=== PATIENT | female | born 1995 | race Caucasian/White ===

== ENCOUNTER 2017-10-10 19:16 | Emergency (ER) | payer OTHER ==
[2017-10-10 19:24] VITALS: BP 140/74
--- NOTE | 2017-10-10 19:32 | ED Physician Documentation ---
PD HPI OPHTHO - Stated complaint Stated Complaint: EYE ISSUES - Chief complaint Chief Complaint: Heent - History obtained from History obtained from: Patient - History of Present Illness Timing - onset: Today (Fairly acutely within the last few hours this noncontact lens wearing woman is developed a sensation of irritation and swelling the left lateral sclera without visual deficit.) Review of Systems Constitutional: denies: Fever, Chills Ears: denies: Loss of hearing, Ear pain, Drainage/discharge Nose: denies: Rhinorrhea / runny nose, Congestion PD PAST MEDICAL HISTORY - Past Medical History : Chronic bladder infection - Past Surgical History Past Surgical History: No - Present Medications Home Medications: Ambulatory Orders Medication Instructions Recorded Confirmed Ciprofloxacin [Cipro] 500 mg PO Q12H #20 tablet 05/09/14 Ibuprofen 1 tab TID PRN 05/09/14 05/09/14 Oxycodone HCl/Acetaminophen 1 each PO Q6H PRN #10 tablet 05/09/14 [Percocet 5-325 mg Tablet] predniSONE [Prednisone] 40 mg PO DAILY 5 Days tablet 05/09/14 Meloxicam [Mobic] 7.5 mg PO DAILY #20 tablet 03/25/16 raNITIdine [Zantac] 150 mg PO DAILY #30 tablet 03/25/16 Tobramycin/Dexamethasone [Tobradex 1 drops OP TID 5 Days #1 drops.susp 10/10/17 Eye Drops] - Allergies Allergies/Adverse Reactions: Allergies Allergy/AdvReac Type Severity Reaction Status Date / Time amoxicillin Allergy Rash Verified 05/09/14 17:27 Sulfa (Sulfonamide Allergy Rash Verified 05/09/14 17:27 Antibiotics) - Social History Does the pt smoke?: No Smoking Status: Never smoker Does the pt drink ETOH?: No Does the pt have substance abuse?: No PD ED PE NORMAL - Vitals Vital signs reviewed: Yes - General General: Alert and oriented X 3, No acute distress - HEENT HEENT: PERRL, EOMI, Other (She has conjunctivitis on the left with lateral chemosis and no fluorescein uptake.) - Neck Neck: Supple, no meningeal sign, No bony TTP Results - Vitals Vitals: Vital Signs - 24 hr 10/10/17 19:22 Temperature 36.8 C Heart Rate 76 Respiratory 18 Rate Blood Pressure 140/74 H O2 Saturation 99 Oxygen O2 Source Room air PD MEDICAL DECISION MAKING - Sepsis Event Vital Signs: Vital Signs - 24 hr 10/10/17 19:22 Temperature 36.8 C Heart Rate 76 Respiratory 18 Rate Blood Pressure 140/74 H O2 Saturation 99 Oxygen O2 Source Room air Departure - Departure Disposition: 01 Home, Self Care Clinical Impression: Conjunctivitis, left eye Qualifiers: Conjunctivitis type: acute Acute conjunctivitis type: unspecified Qualified Code(s): H10.32 - Unspecified acute conjunctivitis, left eye Condition: Good Record reviewed to determine appropriate education?: Yes Instructions: ED Conjunctivitis Nonspecific Prescriptions: Tobramycin/Dexamethasone [Tobradex Eye Drops] 1 drops OP TID 5 Days #1 drops.susp Comments: The eyedrops should rapidly resolve the symptoms, if not better at the end of the weekend see your eye doctor. Your blood pressure was elevated today on check into the emergency department. This does not mean that you have hypertension, it is a common phenomenon to come to the emergency department and have elevated blood pressure. I recommend that you see your primary care physician within the week to have it rechecked when you are feeling better.
== END 2017-10-10 19:44 | disposition home or self-care (01) ==
LOC: ED 19:16
DX: H10.32 Unspecified acute conjunctivitis, left eye (principal); R03.0 Elevated blood-pressure reading, without diagnosis of hypertension
CPT/HCPCS: 99282; 99283

== ENCOUNTER 2018-11-26 12:44 | Emergency (ER) | payer BC, OTHER ==
--- NOTE | 2018-11-26 13:39 | ED Physician Documentation ---
History of Present Illness - Stated complaint Stated Complaint: ABD PX/FEMALE - Chief complaint Chief Complaint: General - History obtained from History obtained from: Patient - History of Present Illness Timing: Prior to arrival - Additonal information Additional information: Patient is a G1, P1 23-year-old female who has concern for possible with multiple test positive at home but has not yet had confirmatory ultrasound or care. Patient was supposed to see women's health clinic this morning but yesterday developed a migraine and had nausea which is typical for her usual migraines, but then later developed abdominal cramping and this morning developed Vaginal bleeding. Patient denies any urinary changes, stool changes, fever, or other concerns. Patient does know that her blood type is O- and has received RhoGam in the past. No other improving or worsening factors noted. Review of Systems Constitutional: denies: Fever GI: reports: Abdominal Pain, Nausea. denies: Vomiting, Diarrhea : reports: Vaginal bleeding. denies: Dysuria Neurologic: reports: Headache PD PAST MEDICAL HISTORY - Past Medical History Past Medical History: Yes Neuro: Migraines : Chronic bladder infection - Past Surgical History Past Surgical History: No - Present Medications Home Medications: Ambulatory Orders Medication Instructions Recorded Confirmed Ciprofloxacin [Cipro] 500 mg PO Q12H #20 tablet 05/09/14 Ibuprofen 1 tab TID PRN 05/09/14 05/09/14 Oxycodone HCl/Acetaminophen 1 each PO Q6H PRN #10 tablet 05/09/14 [Percocet 5-325 mg Tablet] predniSONE [Prednisone] 40 mg PO DAILY 5 Days tablet 05/09/14 Meloxicam [Mobic] 7.5 mg PO DAILY #20 tablet 03/25/16 raNITIdine [Zantac] 150 mg PO DAILY #30 tablet 03/25/16 Tobramycin/Dexamethasone [Tobradex 1 drops OP TID 5 Days #1 drops.susp 10/10/17 Eye Drops] Cephalexin [Keflex] 500 mg PO BID #14 capsule 11/26/18 - Allergies Allergies/Adverse Reactions: Allergies Allergy/AdvReac Type Severity Reaction Status Date / Time amoxicillin Allergy Rash Verified 05/09/14 17:27 Sulfa (Sulfonamide Allergy Rash Verified 05/09/14 17:27 Antibiotics) - Social History Does the pt smoke?: No Smoking Status: Never smoker Does the pt drink ETOH?: No Does the pt have substance abuse?: No - Immunizations Immunizations are current?: Yes PD ED PE NORMAL - Vitals Vital signs reviewed: Yes - General General: Alert and oriented X 3, No acute distress, Well developed/nourished - HEENT HEENT: Atraumatic, Moist mucous membranes - Neck Neck: Supple, no meningeal sign - Cardiac Cardiac: RRR, No murmur - Respiratory Respiratory: No respiratory distress, Clear bilaterally - Abdomen Abdomen: Soft, Non tender, Non distended - Derm Derm: Normal color, Warm and dry, No rash - Extremities Extremities: No deformity, No tenderness to palpate - Neuro Neuro: Alert and oriented X 3, No motor deficit, No sensory deficit - Psych Psych: Normal mood, Normal affect Results - Vitals Vitals: Vital Signs - 24 hr 11/26/18 11/26/18 11/26/18 12:50 14:19 17:28 Temperature 37.1 C 37.4 C Heart Rate 84 61 62 Respiratory 16 16 12 Rate Blood Pressure 125/64 122/78 122/78 O2 Saturation 100 99 98 Oxygen O2 Source Room air - Labs Labs: Laboratory Tests 11/26/18 11/26/18 11/26/18 14:00 14:00 14:00 WBC 4.9 RBC 4.42 Hgb 12.1 Hct 37.1 MCV 83.9 MCH 27.4 MCHC 32.6 RDW 14.1 Plt Count 144 MPV 12.2 H Neut # (Auto) 2.9 Lymph # (Auto) 1.4 L [place] # (Auto) 0.4 Eos # (Auto) 0.2 Baso # (Auto) 0.0 Absolute Nucleated RBC 0.00 Nucleated RBC % 0.0 PT 14.5 H INR 1.3 H APTT 27.4 Sodium 140 Potassium 3.5 Chloride 105 Carbon Dioxide 23 Anion Gap 12.0 BUN 10 Creatinine 0.8 Estimated GFR (MDRD) 88 L Glucose 102 H Calcium 9.1 Total Bilirubin 1.0 AST 19 ALT 14 Alkaline Phosphatase 47 Total Protein 7.6 Albumin 4.1 Globulin 3.5 Albumin/Globulin Ratio 1.2 Lipase 24 HCG, Quant Urine Color Urine Clarity Urine pH Ur Specific [place] Urine Protein Urine Glucose (UA) Urine Ketones Urine Occult Blood Urine Nitrite Urine Bilirubin Urine Urobilinogen Ur Leukocyte Esterase Urine RBC Urine WBC Ur Squamous Epith Cells Urine Bacteria Ur Microscopic Review Urine Culture Comments Blood Type Antibody Screen 11/26/18 11/26/18 11/26/18 14:00 14:00 14:20 WBC RBC Hgb Hct MCV MCH MCHC RDW Plt Count MPV Neut # (Auto) Lymph # (Auto) [place] # (Auto) Eos # (Auto) Baso # (Auto) Absolute Nucleated RBC Nucleated RBC % PT INR APTT Sodium Potassium Chloride Carbon Dioxide Anion Gap BUN Creatinine Estimated GFR (MDRD) Glucose Calcium Total Bilirubin AST ALT Alkaline Phosphatase Total Protein Albumin Globulin Albumin/Globulin Ratio Lipase HCG, Quant 31.64 Urine Color YELLOW Urine Clarity CLEAR Urine pH 6.0 Ur Specific [place] 1.025 Urine Protein TRACE Urine Glucose (UA) NEGATIVE Urine Ketones 15 H Urine Occult Blood LARGE H Urine Nitrite POSITIVE H Urine Bilirubin NEGATIVE Urine Urobilinogen 1 (NORMAL) Ur Leukocyte Esterase TRACE H Urine RBC 11-25 H Urine WBC 6-10 H Ur Squamous Epith Cells FEW Squamous Urine Bacteria Many H Ur Microscopic Review INDICATED Urine Culture Comments INDICATED Blood Type O NEGATIVE Antibody Screen NEGATIVE PD MEDICAL DECISION MAKING - ED course Complexity details: reviewed results, re-evaluated patient, considered differential, d/w patient, d/w family ED course: Patient presenting with abdominal cramping and vaginal bleeding and early possible that has not yet been confirmed. Patient has had multiple home test returned positive, but has not yet been able to attend care. Physical exam is relatively unremarkable. Patient is hemodynamically stable and comfortable. Patient to receive IV fluids, but did not require other medications at this time except for RhoGam given her vaginal bleeding and O- status. Screening lab work returned relatively unremarkable with low level hCG. Urinalysis concerning for infection and given possibility of , felt appropriate to treat with oral antibiotics for home. Ultrasound obtained which not show evidence of IUP or other ectopic . Discussed results and recommendations with patient and family including use of antibiotics, supportive cares, return precautions, and follow-up including repeat hCG level in 48 hours. Patient voiced understanding and is comfortable with discharge plan. Departure - Departure Disposition: 01 Home, Self Care Clinical Impression: Threatened miscarriage in early Urinary tract infection Qualifiers: Urinary tract infection type: acute cystitis Hematuria presence: without hematuria Qualified Code(s): N30.00 - Acute cystitis without hematuria Condition: Good Instructions: ED Miscarriage Poss Follow-Up: your,doctor [Other] - Tomorrow Prescriptions: Cephalexin [Keflex] 500 mg PO BID #14 capsule Comments: Please continue vitamins. Please take antibiotics for possible bladder infection. Recommend taking antibiotics with small amount of food to avoid upset stomach. Please return to the ED, urgent care, or your primary care physician in 48 hours to repeat beta-hCG level. Return to the ED sooner if experience worsening symptoms or have other concerns.
[2018-11-26] MEDS ORDERED: SODIUM CHLORIDE 0.9% 1,000 ML IV ONE (13:46)
[2018-11-26] MEDS ORDERED: RHO(D) IMMUNE GLOBULIN 300 MCG SYRINGE IM STA (13:47)
[2018-11-26 14:20] VITALS: BP 122/78
[2018-11-26 14:28] LABS: BASOPHILS % (AUTO) 0.6 %; EOSINOPHILS # (AUTO) 0.2 10^3/uL (0.0-0.7); EOSINOPHILS % (AUTO) 3.8 %; HGB - HEMOGLOBIN 12.1 g/dL (12.0-16.0); LYMPHOCYTES # (AUTO) 1.4 10^3/uL (1.5-3.5); LYMPHOCYTES % (AUTO) 27.7 %; MEAN CORPUSCULAR HEMOGLOBIN 27.4 pg (27.0-31.0); MEAN CORPUSCULAR HGB CONC 32.6 g/dL (32.0-36.0); MEAN CORPUSCULAR VOLUME 83.9 fL (81.0-99.0); MEAN PLATELET VOLUME 12.2 fL (7.9-10.8); MONOCYTES # (AUTO) 0.4 10^3/uL (0.0-1.0); MONOCYTES % (AUTO) 8.9 %; NEUTROPHILS # (AUTO) 2.9 10^3/uL (1.5-6.6); NEUTROPHILS % (AUTO) 58.6 %; PLT - PLATELET COUNT 144 10^3/uL (130-450); RED BLOOD COUNT 4.42 10^6/uL (4.20-5.40); RED CELL DISTRIBUTION WIDTH 14.1 % (12.0-15.0); WHITE BLOOD COUNT 4.9 x10^3/uL (4.8-10.8)
[2018-11-26 14:32] LABS: INR 1.3 (0.8-1.2); PT - PROTHROMBIN TIME 14.5 secs (9.9-12.6)
[2018-11-26 14:39] LABS: ALBUMIN 4.1 g/dL (3.2-5.5); ALBUMIN/GLOBULIN RATIO 1.2 (1.0-2.2); CALCIUM 9.1 mg/dL (8.5-10.3); CREATININE 0.8 mg/dL (0.4-1.0); PARTIAL THROMBOPLASTIN TIME 27.4 secs (24.9-33.3); TOTAL PROTEIN 7.6 g/dL (6.7-8.2)
[2018-11-26 14:40] LABS: BILIRUBIN,URINE NEGATIVE (NEGATIVE); GLUCOSE, URINE (UA) NEGATIVE (NEGATIVE); KETONES,URINE (UA) 15 mg/dL (NEGATIVE); LEUKOCYTE ESTERASE, URINE TRACE (NEGATIVE); NITRITE,URINE POSITIVE (NEGATIVE); OCCULT BLOOD,URINE LARGE (NEGATIVE); PROTEIN,URINE TRACE mg/dL (NEGATIVE); UROBILINOGEN,URINE 1 (NORMAL) E.U./dL (NORMAL)
[2018-11-26 14:41] LABS: CLARITY,URINE CLEAR (CLEAR)
[2018-11-26 14:59] LABS: BACTERIA,URINE Many /HPF (None Seen); SQUAMOUS EPITHELIAL CELL,UR FEW Squamous (<= Few)
--- NOTE | 2018-11-26 16:46 | Ultrasound Report ---
Reason: bleeding in first trimester Procedure Date: 11/26/2018 Accession Number: [id number] / [id number] Procedure: US - OB First Trimester CPT Code: FULL RESULT: EXAM: FIRST TRIMESTER OBSTETRIC ULTRASOUND (Less than 11 weeks) EXAM DATE: 11/26/2018 03:30 PM. CLINICAL HISTORY: Bleeding in first trimester. LMP: 10/22/2018. COMPARISONS: None. TECHNIQUE: Transabdominal and transvaginal ultrasound examination with static image documentation. ASSESSMENT: Gestational Sac: None identified. Embryo: Not identified. MATERNAL STRUCTURES: Uterus: Anteverted. Unremarkable. Cervix: Closed. Right Ovary/Adnexa: The ovary measures 3.8 x 2.3 x 3.9 cm, volume 17.9 cc. Unremarkable. Left Ovary/Adnexa: The ovary measures 2.7 x 2.4 x 3.1 cm, volume 10.5 cc. There is a dominant follicle. Free Fluid: None. Other: None. IMPRESSION: No intrauterine or extrauterine identified. Recommend correlation with serial quantitative beta hCG. RADIA
== END 2018-11-26 17:47 | disposition home or self-care (01) ==
LOC: ED 12:44
DX: O20.0 Threatened abortion (principal); O23.11 Infections of bladder in pregnancy, first trimester; N30.00 Acute cystitis without hematuria; O26.891 Other specified pregnancy related conditions, first trimester; Z67.41 Type O blood, Rh negative; Z3A.00 Weeks of gestation of pregnancy not specified
CPT/HCPCS: 36415; 76801; 76817; 80053; 81001; 81003; 83690; 84702; 85025; 85610; 85730; 86850; 86900; 86901; 87086; 87181; 96360; 96372; 99284

== ENCOUNTER 2018-11-28 18:40 | Emergency (ER) | payer BC, OTHER ==
[2018-11-28 18:48] VITALS: BP 120/76
--- NOTE | 2018-11-28 19:06 | ED Physician Documentation ---
History of Present Illness - Stated complaint Stated Complaint: ABD PX - Chief complaint Chief Complaint: General - History obtained from History obtained from: Patient - Additonal information Additional information: Patient is a 23-year-old female presenting for repeat lab draw for hCG given concern for threatened miscarriage.Please refer to this physician's note from 2 days ago for further details. At this time, patient reports improvement of all symptoms including near resolution of vaginal bleeding. Patient denies persistence of abdominal cramping. Patient denies nausea, vomiting, fever, urine changes, or stool changes. Patient continues to take vitamins. Patient also taking antibiotics for UTI. No other improving or worsening factors noted. Review of Systems Constitutional: denies: Fever GI: denies: Abdominal Pain, Nausea, Vomiting, Diarrhea : reports: Vaginal bleeding. denies: Dysuria PD PAST MEDICAL HISTORY - Past Medical History Neuro: Migraines : Chronic bladder infection - Past Surgical History Past Surgical History: No - Present Medications Home Medications: Ambulatory Orders Medication Instructions Recorded Confirmed Ciprofloxacin [Cipro] 500 mg PO Q12H #20 tablet 05/09/14 Ibuprofen 1 tab TID PRN 05/09/14 05/09/14 Oxycodone HCl/Acetaminophen 1 each PO Q6H PRN #10 tablet 05/09/14 [Percocet 5-325 mg Tablet] predniSONE [Prednisone] 40 mg PO DAILY 5 Days tablet 05/09/14 Meloxicam [Mobic] 7.5 mg PO DAILY #20 tablet 03/25/16 raNITIdine [Zantac] 150 mg PO DAILY #30 tablet 03/25/16 Tobramycin/Dexamethasone [Tobradex 1 drops OP TID 5 Days #1 drops.susp 10/10/17 Eye Drops] Cephalexin [Keflex] 500 mg PO BID #14 capsule 11/26/18 - Allergies Allergies/Adverse Reactions: Allergies Allergy/AdvReac Type Severity Reaction Status Date / Time amoxicillin Allergy Rash Verified 05/09/14 17:27 Sulfa (Sulfonamide Allergy Rash Verified 05/09/14 17:27 Antibiotics) - Social History Does the pt smoke?: No Smoking Status: Never smoker Does the pt drink ETOH?: No Does the pt have substance abuse?: No - Immunizations Immunizations are current?: Yes - POLST Patient has POLST: No PD ED PE NORMAL - Vitals Vital signs reviewed: Yes - General General: Alert and oriented X 3, No acute distress, Well developed/nourished - HEENT HEENT: Atraumatic, Moist mucous membranes - Neck Neck: Supple, no meningeal sign - Cardiac Cardiac: RRR, No murmur - Respiratory Respiratory: Clear bilaterally - Abdomen Abdomen: Soft, Non tender, Non distended (Nongravid) - Derm Derm: Normal color, Warm and dry, No rash - Extremities Extremities: No deformity, No tenderness to palpate - Neuro Neuro: Alert and oriented X 3, No motor deficit, No sensory deficit - Psych Psych: Normal mood, Normal affect Results - Vitals Vitals: Vital Signs - 24 hr 11/28/18 18:44 Temperature 36.6 C Heart Rate 77 Respiratory 18 Rate Blood Pressure 120/76 O2 Saturation 99 Oxygen O2 Source Room air - Labs Labs: Laboratory Tests 11/28/18 19:05 HCG, Quant 27.41 PD MEDICAL DECISION MAKING - ED course Complexity details: reviewed results, re-evaluated patient, considered differential, d/w patient, d/w family ED course: Patient presenting for repeat 48-hour hCG level. Please refer to this physician's note from 2 days ago for additional details. Patient reports improvement of all symptoms with resolution except for some persistent vaginal bleeding. Physical exam is extremely unremarkable.At this time, do not feel she requires repeat ultrasound given findings in the last several days. Patient is also taking antibiotics for known UTI. Only repeat lab work performed tonight as hCG level which is slightly decreased from prior. Had extensive discussions regarding decrease as opposed to doubling or other increase in this level with patient, especially in combination with recent work-up such as ultrasound. Patient is aware that this is likely a miscarriage. Discussed strict return precautions and need for further follow-up including likely repeat test again in 48 hours and FORENSIC PHOTOGRAPHER evaluation. Patient voiced understanding and is comfortable with discharge plan. Departure - Departure Disposition: 01 Home, Self Care Clinical Impression: Threatened miscarriage Condition: Good Instructions: ED Miscarriage Poss Follow-Up: your,FORENSIC PHOTOGRAPHER [Other] - Within 3 Days Comments: Please continue vitamin. Recommend contacting FORENSIC PHOTOGRAPHER Friday morning to discuss symptoms and concerns for possible threatened miscarriage. They may request further evaluation such as ultrasound or repeat blood work. Additionally, if unable to obtain follow-up, please return to ED on Friday for repeat blood hCG test.Return to ED sooner if experience worsening symptoms or have other concerns.
== END 2018-11-28 20:21 | disposition home or self-care (01) ==
LOC: ED 18:40
DX: O20.0 Threatened abortion (principal)
CPT/HCPCS: 36415; 84702; 84703; 99283; 99284

== ENCOUNTER 2019-04-06 10:05 | Outpatient (CLI) | payer BC, OTHER ==
--- NOTE | 2019-04-07 14:07 | Ultrasound Report ---
Reason: TEST POSITIVE Procedure Date: 04/06/2019 Accession Number: [id number] / [id number] Procedure: US - OB First Trimester CPT Code: Final Report FULL RESULT: EXAM: FIRST TRIMESTER OBSTETRIC ULTRASOUND (Less than 11 weeks) EXAM DATE: 04/06/2019 10:48 AM. CLINICAL HISTORY: test positive. LMP: 02/13/2019. COMPARISONS: OB FIRST TRIMESTER 11/26/2018 3:07 PM. TECHNIQUE: Transabdominal and transvaginal ultrasound examination with static image documentation. CLINICAL DATES: EGA 7 weeks 3 days with RAMY 11/20/2019 based on LMP. ASSESSMENT: Gestational Sac: Single intrauterine. Mean gestational sac diameter: 24.1 mm = 7 weeks 3 days. Embryo: CRL (crown-rump length) 11.0 mm = 7 weeks 2 days. Cardiac activity: 155 beats per minute. Yolk sac: 3.3 mm. Amniotic fluid: Not accurately assessed at this gestational age. Early placenta: Not visible at this gestational age. Other: Perigestational fluid collection, measuring 4.8 x 9.7 x 21.5 mm.. MATERNAL STRUCTURES: Uterus: Anteverted. Unremarkable. Cervix: Closed. Right Ovary/Adnexa: The ovary measures 3.2 x 1.8 x 1.6 cm, volume 4.8 cc. Unremarkable. Left Ovary/Adnexa: The ovary measures 3.6 x 2.1 x 1.9 cm, volume 7.5 cc. Corpus luteum cyst 2.2 x 1.7 x 1.7 cm Free Fluid: None. Other: None. IMPRESSION: 1. Single viable intrauterine at EGA 7 weeks 2 days with RAMY 11/21/2019 based on crown-rump length, which is concordant with clinical dates. 2. Assigned dating is RAMY 11/21/2019 based on current ultrasound. RADIA
== END 2019-04-06 10:06 | disposition home or self-care (01) ==
LOC: DI 10:05
PROVIDERS: ATTEND Nurse Practitioner Obstetrics & Gynecology
DX: Z32.01 Encounter for pregnancy test, result positive (principal)
CPT/HCPCS: 76801; 76817

== ENCOUNTER 2019-04-20 07:00 | Outpatient (CLI) | payer BC, OTHER ==
[2019-04-20 14:08] LABS: MUDS CUTOFF CONCENTRATIONS CUTOFF CONC BELOW:
[2019-04-20 14:23] LABS: BILIRUBIN,URINE NEGATIVE (NEGATIVE); GLUCOSE, URINE (UA) NEGATIVE (NEGATIVE); KETONES,URINE (UA) NEGATIVE (NEGATIVE); LEUKOCYTE ESTERASE, URINE NEGATIVE (NEGATIVE); NITRITE,URINE POSITIVE (NEGATIVE); OCCULT BLOOD,URINE NEGATIVE (NEGATIVE); PH,URINE 7.5 PH (5.0-7.5); PROTEIN,URINE NEGATIVE (NEGATIVE); UROBILINOGEN,URINE 0.2 (NORMAL) E.U./dL (NORMAL)
[2019-04-20 14:28] LABS: CLARITY,URINE CLOUDY (CLEAR)
[2019-04-20 14:29] LABS: AMPHETAMINE SCREEN,URINE NEGATIVE (NEGATIVE); BENZODIAZEPINES SCREEN, URINE NEGATIVE (NEGATIVE); COCAINE SCREEN URINE NEGATIVE (NEGATIVE); METHADONE SCREEN, URINE NEGATIVE (NEGATIVE); METHAMPHETAMINES SCREEN, URINE NEGATIVE (NEGATIVE); OPIATE SCREEN, URINE NEGATIVE (NEGATIVE); OXYCODONE SCREEN, URINE NEGATIVE (NEGATIVE); PROPOXYPHENE SCREEN, URINE NEGATIVE (NEGATIVE); TRICYCLIC ANTIDEPRESSANT,URINE NEGATIVE (NEGATIVE)
[2019-04-20 14:34] LABS: AMORPHOUS SEDIMENT,UR Moderate /LPF; BACTERIA,URINE Moderate /HPF (None Seen); MUCUS,URINE Few Strands; RBC,URINE 0-5 /HPF (0-5); SQUAMOUS EPITHELIAL CELL,UR FEW Squamous (<= Few)
== END 2019-04-20 23:59 | disposition home or self-care (01) ==
LOC: LAB.R 07:00
PROVIDERS: ATTEND Obstetrics & Gynecology
DX: Z34.90 Encounter for supervision of normal pregnancy, unspecified, unspecified trimester (principal)
CPT/HCPCS: 80306; 81001; 87086; 87181

== ENCOUNTER 2019-06-02 10:13 | Outpatient (CLI) | payer BC, OTHER ==
[2019-06-02 10:48] LABS: BASOPHILS % (AUTO) 0.4 %; EOSINOPHILS # (AUTO) 0.1 10^3/uL (0.0-0.7); EOSINOPHILS % (AUTO) 1.4 %; LYMPHOCYTES # (AUTO) 1.2 10^3/uL (1.5-3.5); LYMPHOCYTES % (AUTO) 20.8 %; MEAN CORPUSCULAR HEMOGLOBIN 26.9 pg (27.0-31.0); MEAN CORPUSCULAR HGB CONC 31.7 g/dL (32.0-36.0); MEAN CORPUSCULAR VOLUME 84.7 fL (81.0-99.0); MEAN PLATELET VOLUME 12.4 fL (7.9-10.8); MONOCYTES # (AUTO) 0.3 10^3/uL (0.0-1.0); PLT - PLATELET COUNT 122 10^3/uL (130-450); RED BLOOD COUNT 3.72 10^6/uL (4.20-5.40); RED CELL DISTRIBUTION WIDTH 14.9 % (12.0-15.0); WHITE BLOOD COUNT 5.6 x10^3/uL (4.8-10.8)
[2019-06-02 14:16] LABS: % IRON SATURATION 13 % (20-50); IRON 38 ug/dL (28-170); TOTAL IRON BINDING CAPACITY 283 ug/dL (250-450); TRANSFERRIN 202 mg/dL (192-382)
[2019-06-02 14:21] LABS: FERRITIN 5.8 ng/mL (11.0-306.8)
[2019-06-02 14:24] LABS: FOLATE 13.05 ng/mL (5.90 - >24.8)
[2019-06-03 11:04] LABS: HIV AG/AB 4TH GEN NON-REACTIVE (NON-REACTIVE)
[2019-06-03 12:03] LABS: HEPATITIS B SURFACE ANTIGEN NON-REACTIVE (NON-REACTIVE); HEPATITIS C ANTIBODY NON-REACTIVE (NON-REACTIVE)
== END 2019-06-02 10:14 | disposition home or self-care (01) ==
LOC: LAB 10:13
PROVIDERS: ATTEND Obstetrics & Gynecology
DX: O99.019 Anemia complicating pregnancy, unspecified trimester (principal); Z3A.00 Weeks of gestation of pregnancy not specified
CPT/HCPCS: 36415; 81511; 81599; 82607; 82728; 82746; 83021; 83540; 84466; 85014; 85018; 85025; 85041; 86592; 86762; 86803; 86850; 86900; 86901; 87340; 87389

== ENCOUNTER 2019-06-17 08:00 | Outpatient (CLI) | payer BC, OTHER ==
[2019-06-17 21:43] LABS: TRICHOMONAS VAGINALIS DNA NEGATIVE (NEGATIVE)
== END 2019-06-17 23:59 | disposition home or self-care (01) ==
LOC: LAB.R 08:00
PROVIDERS: ATTEND Obstetrics & Gynecology
DX: Z11.3 Encounter for screening for infections with a predominantly sexual mode of transmission (principal)
CPT/HCPCS: 87491; 87591; 87661

== ENCOUNTER 2019-07-02 15:14 | Outpatient (CLI) | payer BC, OTHER ==
--- NOTE | 2019-07-05 12:07 | Ultrasound Report ---
Reason: SUPER OF NORMAL Procedure Date: 07/02/2019 Accession Number: [id number] / [id number] Procedure: US - OB Detailed Eval CPT Code: Final Report FULL RESULT: EXAM: COMPLETE OBSTETRICAL ULTRASOUND EXAM DATE: 07/02/2019 05:00 PM. CLINICAL HISTORY: anatomic survey. COMPARISON: OB FIRST TRIMESTER 04/06/2019 10:06 AM. TECHNIQUE: Real-time sonographic evaluation of the fetus performed by the ribbon sweatband operator. Multiple direct customer service representative static images were saved for review. DATING: Established EGA 19 weeks 6 days with RAMY 11/20/2019 based on LMP. EGA 19 weeks 5 days with RAMY 11/21/2019 based on first ultrasound of 04/06/2019. EGA 19 weeks 6 days with RAMY 11/20/2019 based on the current ultrasound. GENERAL EVALUATION [place] . Cardiac activity: 135 bpm. movement: Present Presentation: Variable Placenta: Posterior position. No evidence for previa. Umbilical cord: 3 vessel cord. Central placental cord origin. Amniotic fluid: Subjectively normal. MVP 3.7 cm. BIOMETRY Bi-Parietal Diameter (BPD): 4.6 cm, 20 weeks 0 days Head Circumference (HC): 17.9 cm, 20 weeks 2 days Abdominal Circumference (AC): 15.9 cm, 21 weeks 0 days Femur Length (FL): 3 cm, 19 weeks 2 days Estimated Weight: 341 g, 68 percentile for 19 weeks 6 days. ANATOMY The intracranial structures, profile, face/nose/lips, spine, 4 chamber heart and outflow tracts, stomach, abdominal wall and cord insertion, diaphragm, kidneys, bladder, and extremities were imaged and demonstrate no abnormality. MATERNAL STRUCTURES Uterus: Unremarkable. Cervix: Long and closed. Transabdominal length 4.2 cm. Right ovary/adnexa: Unremarkable. Left ovary/adnexa: Unremarkable. Free fluid: None. IMPRESSION: 1. [place] intrauterine with gestational age 19 weeks 6 days based on LMP. 2. Estimated weight is within expected limits for assigned dating. 3. Normal anatomic survey. No anatomic abnormalities are detected at this time. RADIA
== END 2019-07-02 15:15 | disposition home or self-care (01) ==
LOC: DI 15:14
PROVIDERS: ATTEND Obstetrics & Gynecology
DX: Z34.92 Encounter for supervision of normal pregnancy, unspecified, second trimester (principal)
CPT/HCPCS: 76811

== ENCOUNTER 2019-07-13 10:15 | Outpatient (CLI) | payer BC, OTHER ==
[2019-07-13 10:26] LABS: HGB - HEMOGLOBIN 11.9 g/dL (12.0-16.0); MEAN CORPUSCULAR HEMOGLOBIN 30.7 pg (27.0-31.0); MEAN CORPUSCULAR HGB CONC 33.2 g/dL (32.0-36.0); MEAN CORPUSCULAR VOLUME 92.3 fL (81.0-99.0); MEAN PLATELET VOLUME 11.3 fL (7.9-10.8); RED BLOOD COUNT 3.88 10^6/uL (4.20-5.40); RED CELL DISTRIBUTION WIDTH 17.2 % (12.0-15.0); WHITE BLOOD COUNT 7.8 x10^3/uL (4.8-10.8)
== END 2019-07-13 10:16 | disposition home or self-care (01) ==
LOC: LAB 10:15
PROVIDERS: ATTEND Obstetrics & Gynecology
DX: O99.019 Anemia complicating pregnancy, unspecified trimester (principal); D64.9 Anemia, unspecified; Z3A.00 Weeks of gestation of pregnancy not specified
CPT/HCPCS: 36415; 85027

== ENCOUNTER 2019-08-24 10:09 | Outpatient (CLI) | payer BC, OTHER ==
[2019-08-24 11:20] LABS: HGB - HEMOGLOBIN 11.5 g/dL (12.0-16.0); MEAN CORPUSCULAR HEMOGLOBIN 32.7 pg (27.0-31.0); MEAN CORPUSCULAR HGB CONC 35.2 g/dL (32.0-36.0); MEAN CORPUSCULAR VOLUME 92.9 fL (81.0-99.0); MEAN PLATELET VOLUME 11.3 fL (7.9-10.8); RED BLOOD COUNT 3.52 10^6/uL (4.20-5.40); RED CELL DISTRIBUTION WIDTH 15.9 % (12.0-15.0)
== END 2019-08-24 10:10 | disposition home or self-care (01) ==
LOC: LAB 10:09
PROVIDERS: ATTEND Obstetrics & Gynecology
DX: Z34.90 Encounter for supervision of normal pregnancy, unspecified, unspecified trimester (principal)
CPT/HCPCS: 36415; 82950; 85027; 86850

== ENCOUNTER 2019-10-26 08:00 | Outpatient (CLI) | payer BC, OTHER ==
[2019-10-26 21:43] LABS: TRICHOMONAS VAGINALIS DNA NEGATIVE (NEGATIVE)
== END 2019-10-26 23:59 | disposition home or self-care (01) ==
LOC: LAB.R 08:00
PROVIDERS: ATTEND Obstetrics & Gynecology
DX: O99.019 Anemia complicating pregnancy, unspecified trimester (principal); D64.9 Anemia, unspecified; Z36.85 Encounter for antenatal screening for Streptococcus B; Z3A.00 Weeks of gestation of pregnancy not specified
CPT/HCPCS: 36415; 85027; 87491; 87591; 87661; 87797

== ENCOUNTER 2019-10-26 10:37 | Outpatient (CLI) | payer BC, OTHER ==
[2019-10-26 11:26] LABS: HGB - HEMOGLOBIN 11.8 g/dL (12.0-16.0); MEAN CORPUSCULAR HEMOGLOBIN 33.7 pg (27.0-31.0); MEAN CORPUSCULAR HGB CONC 35.3 g/dL (32.0-36.0); MEAN CORPUSCULAR VOLUME 95.4 fL (81.0-99.0); MEAN PLATELET VOLUME 11.4 fL (7.9-10.8); RED BLOOD COUNT 3.5 10^6/uL (4.20-5.40); RED CELL DISTRIBUTION WIDTH 13.6 % (12.0-15.0)
== END 2019-10-26 10:38 | disposition home or self-care (01) ==
LOC: LAB 10:37
PROVIDERS: ATTEND Obstetrics & Gynecology
DX: O99.019 Anemia complicating pregnancy, unspecified trimester (principal); D64.9 Anemia, unspecified; Z3A.00 Weeks of gestation of pregnancy not specified; Z36.85 Encounter for antenatal screening for Streptococcus B
CPT/HCPCS: 36415; 85027

== ENCOUNTER 2019-11-15 16:59 | Inpatient (IN) | payer BC, OTHER ==
[2019-11-15] MEDS ORDERED: ONDANSETRON 4 MG/2 ML VIAL IVP PRN (17:29)
[2019-11-15] MEDS ORDERED: CARBOPROST TROMETHAMINE 250 MCG/ML AMP IM PRN (17:29)
[2019-11-15] MEDS ORDERED: OXYTOCIN 10 UNIT/ML VIAL IM PRN (17:29)
[2019-11-15] MEDS ORDERED: SODIUM CHLORIDE FLUSH 0.9% 10 ML SYRINGE IVP PRN (17:29)
[2019-11-15] MEDS ORDERED: METHYLERGONOVINE 0.2 MG/ML VIAL IM PRN (17:29)
[2019-11-15] MEDS ORDERED: miSOPROStoL 200 MCG TABLET BC PRN (17:29)
[2019-11-15] MEDS ORDERED: TRANEXAMIC ACID 1,000 MG in SODIUM CHLORIDE 0.9% 100ML 100 ML IV PRN (17:29)
[2019-11-15] MEDS ORDERED: OXYTOCIN/SODIUM CHLORIDE 500 ML IV PRN (17:29)
[2019-11-15] MEDS ORDERED: TERBUTALINE 1 MG/ML VIAL SUBQ PRN (17:29)
[2019-11-15] MEDS ORDERED: LIDOCAINE-MPF 1% 30 ML VIAL ID PRN (17:29)
--- NOTE | 2019-11-15 17:52 | HISTORY & PHYSICAL EXAMINATION ---
History of Present Illness - History of Present Illness HPI Comment/Other: CC: here for elective IOL HPI: Wants IOL to prevent a 9# baby again. No VB, no LOF. Good FM. Rare UC. ROS: feeling well, no fevers at home PMH: neg PSH: surgery for kidney reflux Allergies: amoxicillin and sulfa Meds: PNV SH: no t/e/d FH: no anesthesia reactions OB: , hx of a 9# delivery at 42w. Rh neg, RI, GBS neg, nl pap, normal DM screen Tdap s/p Dating: RAMY 11/20/19 by LMP c/w 7w US O: AVSS Vertex by aleida, 8.25# estimate. Category 1 NST [place] rare UC A/P: 24yo at 39w1d by LMP c/w 7w US here for elective IOL. vertex, AGA, GBS neg. Chronic mild thrombocytopenia this , recheck today, likely gestational. Plts in early October were low-normal. Hx of anemia recheck today FWB: normal quad screen and anatomy scan. Category 1 NST. Rh neg: rhogam workup Dr. Bowser is here now to assess his patient. He will determine manner of induction--will likely be misoprostol. History - Past Medical History Neuro: reports: Migraines : reports: Chronic bladder infection MRSA Hx?: No - POLST Patient has POLST: No Meds/Allgy - Home Medications Home Medications: Ambulatory Orders Medication Instructions Recorded Confirmed Ciprofloxacin [Cipro] 500 mg PO Q12H #20 tablet 05/09/14 Ibuprofen 1 tab TID PRN 05/09/14 05/09/14 Oxycodone HCl/Acetaminophen 1 each PO Q6H PRN #10 tablet 05/09/14 [Percocet 5-325 mg Tablet] predniSONE [Prednisone] 40 mg PO DAILY 5 Days tablet 05/09/14 Meloxicam [Mobic] 7.5 mg PO DAILY #20 tablet 03/25/16 raNITIdine [Zantac] 150 mg PO DAILY #30 tablet 03/25/16 06/08/19 Tobramycin/Dexamethasone [Tobradex 1 drops OP TID 5 Days #1 drops.susp 10/10/17 Eye Drops] Cephalexin [Keflex] 500 mg PO BID #14 capsule 11/26/18 - Allergies Allergies/Adverse Reactions: Allergies Allergy/AdvReac Type Severity Reaction Status Date / Time amoxicillin Allergy Rash Verified 05/09/14 17:27 Sulfa (Sulfonamide Allergy Rash Verified 05/09/14 17:27 Antibiotics) Exam - Vital Signs Vital Signs: Vital Signs x48h Temp Pulse Resp BP 11/15/19 17:19 98.6 F 74 16 116/70
[2019-11-15] MEDS ORDERED: OXYTOCIN/SODIUM CHLORIDE 500 ML IV SCH ×2 (18:00)
[2019-11-15 18:28] LABS: BASOPHILS % (AUTO) 0.3 %; EOSINOPHILS # (AUTO) 0.1 10^3/uL (0.0-0.7); EOSINOPHILS % (AUTO) 0.8 %; HGB - HEMOGLOBIN 11.3 g/dL (12.0-16.0); LYMPHOCYTES # (AUTO) 1.7 10^3/uL (1.5-3.5); LYMPHOCYTES % (AUTO) 16.1 %; MEAN CORPUSCULAR HEMOGLOBIN 32.9 pg (27.0-31.0); MEAN CORPUSCULAR HGB CONC 34.8 g/dL (32.0-36.0); MEAN CORPUSCULAR VOLUME 94.8 fL (81.0-99.0); MEAN PLATELET VOLUME 12.3 fL (7.9-10.8); MONOCYTES % (AUTO) 9.1 %; NEUTROPHILS # (AUTO) 7.8 10^3/uL (1.5-6.6); NEUTROPHILS % (AUTO) 73.1 %; PLT - PLATELET COUNT 136 10^3/uL (130-450); RED BLOOD COUNT 3.43 10^6/uL (4.20-5.40); RED CELL DISTRIBUTION WIDTH 13.2 % (12.0-15.0); WHITE BLOOD COUNT 10.6 x10^3/uL (4.8-10.8)
[2019-11-15] MEDS: miSOPROStoL 100 MCG TABLET PO SCH ×2 (18:39→23:59)
[2019-11-16] MEDS ORDERED: SODIUM CHLORIDE FLUSH 0.9% 10 ML SYRINGE IVP SCH (01:00)
[2019-11-16] MEDS: LACTATED RINGERS 1,000 ML IV PRN ×3 (02:53→17:43)
[2019-11-16] MEDS: fentaNYL 100 MCG/2 ML VIAL IVP PRN ×2 (03:06→04:19)
[2019-11-16] MEDS ORDERED: ROPIVACAINE 0.2% 200 MG/100 ML BAG EP ONE (06:40)
[2019-11-16] MEDS ORDERED: fentaNYL 100 MCG/2 ML VIAL ONE (06:40)
[2019-11-16] MEDS ORDERED: BUPIVACAINE 0.25% PF 10 ML VIAL ONE (06:40)
--- NOTE | 2019-11-16 07:19 | ANESTHESIA ---
Pre-Anesthesia VS, & Labs - Diagnosis active labor - Procedure ISAIAS Vital Signs: Temp Pulse Resp BP Pulse Ox 37.1 C 68 16 108/69 98 11/15/19 23:00 11/15/19 23:00 11/15/19 23:00 11/15/19 23:00 11/15/19 23:00 Height 5 ft 3 in Weight (kg) 80.739 kg Body Mass Index 24.4 - Is Patient ?: Yes - Lab Results Current Lab Results: Laboratory Tests 11/15/19 18:10: WBC 10.6, RBC 3.43 L, Hgb 11.3 L, Hct 32.5 L, MCV 94.8, MCH 32.9 H, MCHC 34.8, RDW 13.2, Plt Count 136, MPV 12.3 H, Neut # (Auto) 7.8 H, Lymph # (Auto) 1.7, [place] # (Auto) 1.0, Eos # (Auto) 0.1, Baso # (Auto) 0.0, Absolute Nucleated RBC 0.00, Nucleated RBC % 0.0 Lab results reviewed: Yes Fish Bones: 11/15/19 18:10 Home Medications and Allergies Active Medications Carboprost Tromethamine (Hemabate) 250 mcg IM Q15M PRN PRN Reason: Step 4: Hemorrhage protocol Stop: 11/17/19 17:30 Fentanyl (Fentanyl) 50 mcg IVP Q1H PRN PRN Reason: PAIN Last Admin: 11/16/19 04:19 Dose: 50 mcg Documented by: Oxytocin/Sodium Chloride (Pitocin/Sodium Chloride) 500 mls @ 999 mls/hr IV PRN PRN; Protocol PRN Reason: POST- HEMORR PREVENTION Stop: 11/17/19 17:30 Tranexamic Acid 1,000 mg/ (Sodium Chloride) 110 mls @ 660 mls/hr IV ONCE PRN PRN Reason: EBL >1200mL and within 3hr Stop: 11/17/19 17:30 Lactated Ringer's (Lr) 1,000 mls @ 150 mls/hr IV .Q6H40M PRN PRN Reason: PER PHYSICIAN ORDER Last Admin: 11/16/19 02:53 Dose: 150 mls/hr Documented by: Oxytocin/Sodium Chloride (Pitocin/Sodium Chloride) 500 mls @ 1 mls/hr IV TITR SANJEEV; Protocol Lidocaine HCl (Xylocaine-Mpf 1% Vial) 30 ml ID ONCE PRN PRN Reason: PERINEAL REPAIR Stop: 11/17/19 17:30 Methylergonovine Maleate (Methergine Inj) 0.2 mg IM ONCE PRN PRN Reason: Step 2: Hemorrhage protocol Stop: 11/17/19 17:30 Misoprostol (Cytotec) 800 mcg BC ONCE PRN PRN Reason: Step 3: Hemorrhage protocol Stop: 11/17/19 17:30 Misoprostol (Cytotec) 50 mcg PO Q4H SANJEEV Last Admin: 11/15/19 23:59 Dose: 50 mcg Documented by: Ondansetron HCl (Zofran Inj) 4 mg IVP Q4H PRN PRN Reason: Nausea / Vomiting Oxytocin (Pitocin) 10 unit IM ONCE PRN PRN Reason: Step one: If no IV access Stop: 11/17/19 17:30 Sodium Chloride (Normal Saline Flush 0.9%) 10 ml IVP PRN PRN PRN Reason: NEEDED PER PROVIDER ORDERS Sodium Chloride (Normal Saline Flush 0.9%) 10 ml IVP 0100,0900,1700 [facility] Terbutaline Sulfate (Terbutaline) 0.25 mg SUBQ Q1H PRN PRN Reason: distress Ibuprofen 1 tab TID PRN 05/09/14 Allergies/Adverse Reactions: Allergies Allergy/AdvReac Type Severity Reaction Status Date / Time amoxicillin Allergy Rash Verified 05/09/14 17:27 Sulfa (Sulfonamide Allergy Rash Verified 05/09/14 17:27 Antibiotics) Anes History & Medical History - Anesthetic History Anesthesia Complications: reports: No previous complications - Medical History Cardiovascular: reports: None Pulmonary: reports: None Gastrointestinal: reports: None Urinary: reports: Chronic bladder infection Neuro: reports: Migraines Smoking Status: Never smoker Exam General: Alert, Oriented x3, Cooperative, No acute distress Dental: WNL Mouth Opening: Greater than 4 Fingerbreadths Neck Mobility: Normal Mallampati classification: I Plan Anesthesia Type: Epidural Consent for Procedure(s) Verified and Reviewed: Yes Code Status: Attempt Resuscitation ASA classification: 2-Mild systemic disease Is this case an emergency?: Yes
--- NOTE | 2019-11-16 07:25 | ANESTHESIA PROCEDURE NOTE ---
Anesthesia Epidural Template - Patient Report Patient Reports: positive: Pain controlled - Plan Plan: positive: Continue current management
[2019-11-16] MEDS ORDERED: diphenhydrAMINE INJ 50 MG/ML VIAL IVP PRN (07:39)
[2019-11-16] MEDS ORDERED: NALOXONE 0.4 MG/ML VIAL IVP PRN (07:39)
[2019-11-16] MEDS ORDERED: LACTATED RINGERS 500 ML IV ONE (07:39)
[2019-11-16] MEDS ORDERED: METOCLOPRAMIDE 10 MG/2 ML VIAL IVP PRN (07:39)
[2019-11-16] MEDS ORDERED: ePHEDrine 50 MG/ML VIAL IVP PRN (07:39)
[2019-11-16] MEDS ORDERED: NALBUPHINE 10 MG/ML AMP IVP PRN (07:39)
[2019-11-16] MEDS ORDERED: ONDANSETRON 4 MG/2 ML VIAL IVP PRN (07:39)
[2019-11-16] MEDS ORDERED: ROPIVACAINE 0.2% 200 MG/100 ML BAG EP PRN (07:39)
--- NOTE | 2019-11-16 08:28 | PROVIDER PROGRESS NOTE ---
Labor Progress Note - Uterine Monitoring Contraction Frequency (min/apart): 3 Contraction Intensity: positive: Moderate Uterine Resting Tone: positive: Soft - Monitoring Monitor Mode: positive: External ultrasound Heart Rate Baseline: 120 Heart Rate Variability: positive: Moderate (6-25 bmp) Accelerations: positive: Present, 15x15 Decelerations: positive: None Strip Review: positive: Category I - Vaginal Exam Dilation (in cm): 2 Effacement (%): 40 Station: -2 Cervical Position: Midposition - Labor Progress Note Labor Progress Note/Additional Text: Pt was columba to frequent to redoes with misoprostol. Cook cahiter placed with 60 uterine adn 40 vaginal.
--- NOTE | 2019-11-16 12:32 | PROVIDER PROGRESS NOTE ---
Labor Progress Note - Uterine Monitoring Uterine Monitoring Mode: positive: External toco Contraction Frequency (min/apart): 2-4 Contraction Intensity: positive: Moderate to strong - Monitoring Monitor Mode: positive: External ultrasound Heart Rate Baseline: 120 Heart Rate Variability: positive: Moderate (6-25 bmp) Accelerations: positive: Present, 15x15 Decelerations: positive: Early, Intermittent (<50% x20 min) Strip Review: positive: Category I - Vaginal Exam Dilation (in cm): 5 Effacement (%): 80% Station: -1 Cervical Position: Midposition - Labor Progress Note Labor Progress Note/Additional Text: making excellent progress. Anticipate .
[2019-11-16] MEDS ORDERED: LIDOCAINE-MPF 1% 30 ML VIAL ONE (14:14)
[2019-11-16] MEDS ORDERED: miSOPROStoL 200 MCG TABLET ONE (14:14)
[2019-11-16] MEDS ORDERED: ONDANSETRON ODT 4 MG TABLET TL PRN (15:28)
[2019-11-16] MEDS ORDERED: oxyCODONE 5 MG TABLET PO PRN (15:28)
[2019-11-16] MEDS ORDERED: diphenhydrAMINE 25 MG CAPSULE PO PRN (15:28)
[2019-11-16] MEDS ORDERED: WITCH HAZEL/GLYCERIN 1 PAD TOP PRN (15:28)
--- NOTE | 2019-11-16 15:39 | DELIVERY NOTE ---
Delivery Note - Labor Labor: positive: Other (misoprostal) - Infant Delivery Method Delivery Method: positive: Spontaneous vaginal delivery - Cervical Ripening Method Cervical Ripening Method: positive: Balloon device, Misoprostil - Presentation Presentation: positive: Vertex, RUT - left occiput anterior - Nuchal Cord Nuchal Cord: positive: None - Anesthetic Anesthetic Type: - Amniotic Fluid Description Amniotic Fluid Description: positive: Clear - Vacuum Use Indication for Vacuum Use: positive: Suspicion of immediate or potential compromise Type of Vacuum Cup: positive: Cup: Rigid Vacuum Extraction: positive: Successful Number of pop-offs: 0 - Episiotomy Type Episiotomy Type: positive: None - Laceration Laceration: positive: None - Delivery Outcome Delivery Outcome: positive: Livebirth - [place]: positive: Placed in direct skin contact with mother, Suctioned, Stimulated [place] sex: positive: Male - Cord Cord: positive: 3 vessels - Placenta Placenta: positive: Intact, Spontaneous - Estimated Blood Loss Estimated Blood Loss (in cc): 400 - Post Delivery Events Post Delivery Events: positive: No post delivery events - Delivery Comments (Free Text/Narrative) Delivery Comments (Free Text/Narrative): Patient presented in the evening of 14 November for cervical ripening. At that point her cervix was noted to be closed long and very posterior. one dose of 50 mgms Misoprostol was administered orally. Throughout the night she had contractions which are running about 2 to 3 minutes patient and showed good toleration. On the morning of the her cervix was 2 cm 40% and mid position. A Cook catheter was placed with 60 cc in the internal bulband 40 ml on the outer bulb. At about noon the [place] bulb was able to be removed without difficulty. Cervix was noted to be 5 cm 80 to 90% effaced and -1. At that point an attempt was made to artificially rupture membranes however there is little or no fluid NOTED at that time. This was felt to be because the head was well applied to the membranes. Her low labor progressed well. She had some difficulty with some loss of variability as well as some lates. She reached complete at 1421 started pushing at 1426. At 1448 a live male was delivered left occiput anterior. A vacuum was placed at +2 and pulled with 1 contraction for 3 pushes. The vacuum was placed secondary to bradycardia down to the 90s and 80s. At time of delivery there was some mild difficulty with delivering the anterior shoulder however this responded quite quickly. At time of delivery a live male infant with Apgars 9/9. And with Pitocin there was a and 400 cc EBL.Placenta followed at 1453 both mother and tolerated delivery well.
[2019-11-16] MEDS: ACETAMINOPHEN 500 MG TABLET PO SCH (15:58)
[2019-11-16] MEDS: IBUPROFEN 600 MG TABLET PO SCH ×2 (15:58→22:08)
[2019-11-16] MEDS ORDERED: LACTATED RINGERS 1,000 ML IV SCH (16:00)
[2019-11-16] MEDS ORDERED: SIMETHICONE CHEW 80 MG TABLET PO SCH (22:00)
[2019-11-17] MEDS: ACETAMINOPHEN 500 MG TABLET PO SCH ×2 (00:26→08:32)
[2019-11-17] MEDS: IBUPROFEN 600 MG TABLET PO SCH ×2 (03:57→09:46)
[2019-11-17 05:22] LABS: BASOPHILS % (AUTO) 0.3 %; EOSINOPHILS # (AUTO) 0.2 10^3/uL (0.0-0.7); EOSINOPHILS % (AUTO) 1.4 %; HGB - HEMOGLOBIN 10.2 g/dL (12.0-16.0); LYMPHOCYTES # (AUTO) 1.4 10^3/uL (1.5-3.5); LYMPHOCYTES % (AUTO) 13.3 %; MEAN CORPUSCULAR HEMOGLOBIN 32.4 pg (27.0-31.0); MEAN CORPUSCULAR HGB CONC 33.6 g/dL (32.0-36.0); MEAN CORPUSCULAR VOLUME 96.5 fL (81.0-99.0); MEAN PLATELET VOLUME 11.9 fL (7.9-10.8); MONOCYTES # (AUTO) 0.7 10^3/uL (0.0-1.0); MONOCYTES % (AUTO) 6.7 %; NEUTROPHILS # (AUTO) 8.2 10^3/uL (1.5-6.6); NEUTROPHILS % (AUTO) 77.8 %; PLT - PLATELET COUNT 105 10^3/uL (130-450); RED BLOOD COUNT 3.15 10^6/uL (4.20-5.40); RED CELL DISTRIBUTION WIDTH 13.2 % (12.0-15.0); WHITE BLOOD COUNT 10.5 x10^3/uL (4.8-10.8)
[2019-11-17 08:35] VITALS: BP 119/58
--- NOTE | 2019-11-17 10:16 | PROVIDER PROGRESS NOTE ---
Subjective - Prog Note Date Prog Note Date: 11/17/19 Prog Note Time: 10:14 - Subjective Pt reports feeling: Improved (Pain 2/10. breast feeding. desires to go home) Objective - Vital Signs/Intake & Output Reviewed Vital Signs: Yes Vital Signs: Vital Signs x48h Temp Pulse Resp BP Pulse Ox 11/17/19 08:34 36.9 C 74 17 119/58 L 98 11/17/19 04:05 36.8 C 54 L 16 123/68 100 Intake & Output: Intake & Output 11/14/19 11/15/19 11/16/19 11/17/19 23:59 23:59 23:59 23:59 Intake Total 225 2900 50 Output Total 1350 Balance 225 1550 50 - Objective General Appearance: positive: No acute distress Abdomen: positive: Non-tender, No organomegaly, Nml bowel sounds, Mass (u-1) Extremities: negative: Calf tenderness, Avni's sign/cords - Lab Results Fish Bones: 11/17/19 05:10 Other Labs: Lab Results x24hrs 11/17/19 Range/Units 05:10 WBC 10.5 (4.8-10.8) x10^3/uL RBC 3.15 L (4.20-5.40) 10^6/uL Hgb 10.2 L (12.0-16.0) g/dL Hct 30.4 L (37.0-47.0) % MCV 96.5 (81.0-99.0) fL MCH 32.4 H (27.0-31.0) pg MCHC 33.6 (32.0-36.0) g/dL RDW 13.2 (12.0-15.0) % Plt Count 105 L (130-450) 10^3/uL MPV 11.9 H (7.9-10.8) fL Neut # (Auto) 8.2 H (1.5-6.6) 10^3/uL Lymph # (Auto) 1.4 L (1.5-3.5) 10^3/uL [place] # (Auto) 0.7 (0.0-1.0) 10^3/uL Eos # (Auto) 0.2 (0.0-0.7) 10^3/uL Baso # (Auto) 0.0 (0.0-0.1) 10^3/uL Absolute Nucleated RBC 0.00 x10^3/uL Nucleated RBC % 0.0 /100WBC Assessment/Plan - Problem List (1) Vacuum-assisted vaginal delivery Impression: mother with excellent recovery. Send home RTC 2 weeks Discharge medication: Oxycodone 5 mg motrin 600 mg colace 100mg
--- NOTE | 2019-11-17 10:25 | Discharge Plan ---
Discharge Plan Problem Reviewed?: Yes Disposition: Home, Self Care Condition: Good Diet: Regular Activity Restrictions: pelvic rest 6 weeks Shower Restrictions: No No Smoking: If you smoke, Please STOP! Call for help.
--- NOTE | 2019-11-17 10:51 | DISCHARGE SUMMARY ---
Physician: Krish Bowser MD DATE OF ADMISSION: 11/15/2019 DATE OF DISCHARGE: 11/17/2019 ADMITTING DIAGNOSES 1. A 24-year-old G3, P1-0-1-1. 2. History of a 9-pound delivery at 42 weeks. 3. Thirty-nine weeks estimated gestational age. 4. Elective induction. DISCHARGE DIAGNOSES 1. A 24-year-old G3, P1-0-1-1. 2. History of a 9-pound delivery at 42 weeks. 3. Thirty-nine weeks estimated gestational age. 4. Elective induction. 5. Delivery of same. PROCEDURES 1. Misoprostol cervical ripening. 2. Cook catheter cervical dilatation. 3. Artificial rupture of membranes. 4. Vacuum-assisted vaginal delivery. 5. Epidural. PRESENTING HISTORY: Patient is a 24-year-old G3, P1-0-0-1, who is 39 weeks and 1 day. She presents for an elective induction. Her course was complicated with mild thrombocytopenia. The remainder of her course was unremarkable. Patient had a 50 gram Glucola, which was noted to be in the normal range. HOSPITAL COURSE: Patient was admitted, received a single dose of 50 mcg of misoprostol on the evening of admission. That night, she had contractions about every 2-3 minutes, which persisted. The following morning, her cervix had changed from fingertip, long, and very posterior to being at 2 cm, 40% effaced, and mid position. A Cook catheter was placed with 60 mL of saline placed in the distal bulb, and she had an epidural placed. The catheter came in over the noon hour. At this point, an attempt at artificial rupture of membranes was made, and minimal to no fluid was returned. This was felt because the amniotic fluids were directly against the baby's head. She progressed to complete. During this time, she had some episodes of loss of variability with late, but this responded to scalp stimulation. She initiated pushing and pushed very effectively; however, she developed some bradycardia down to the 80s and 90s. For this reason, a vacuum was placed, pulled through 1 contraction with 3 pushes, and the head was easily delivered. There was a mild shoulder dystocia, which responded easily to Barbara maneuvers. The infant was delivered, Apgars of 9 and 9. Weight was 8 pounds 4 ounces. It was a male. Her blood loss after delivery was appropriate at 400 mL. She has done well . She is being discharged to home today on discharge medications of: 1. Oxycodone. 2. Motrin. 3. Colace. LABORATORY/DATA: Her CBC on admission showed a white count of 10.6. This remained steady at 10.5. Her hemoglobin was 11.3 and fell to 10.2. Her platelets on admission were 136, but fell to 105. TD: 11/17/2019 10:26 [facility]
--- NOTE | 2019-11-17 16:48 | Labor Flowsheet ---
Labor Flowsheet Datetime Report Generated by CPN: 11/17/2019 16:48 Datetime: 11/17/2019 08:35 Pulse: 75 SpO2 (%): 96 Datetime: 11/17/2019 08:34 VITAL SIGNS NBP Sys/Meme/Mean (mmHg): 119 : 58 : 70 Datetime: 11/16/2019 18:13 Stage of : Recovery Datetime: 11/16/2019 18:00 Respirations: 18 Datetime: 11/16/2019 15:15 Temperature (C): 36.9 Temperature Route: Oral Datetime: 11/16/2019 15:13 Membranes Ruptured Date/Time: 11/16/2019 12:25 Datetime: 11/16/2019 14:48 UTERINE ACTIVITY Monitor Mode: External Frequency (min): 1.5-3 Quality: Moderate Duration (sec): 30-80 Pattern: Normal: <= 5 Contractions in 10 Minutes Resting Tone (Palpate): Relaxed ASSESSMENT A Monitor Mode: External US FHR Baseline Rate : 135 Variability: Moderate 6-25 bpm Accelerations: 15X15 Decelerations: Late; Variable Category: Category II Datetime: 11/16/2019 14:47 Vacuum: Off Stage 2 Comments: vac on 40 seconds Datetime: 11/16/2019 14:46 Station Vacuum/Forceps Applied: +2 Datetime: 11/16/2019 14:45 LaborFlag: Labor Datetime: 11/16/2019 14:33 I/O Interventions: [place] Discontinued Patient Care Comments: UOP 375 Datetime: 11/16/2019 14:30 Monitor Interventions for UA: [place] Adjusted Contraction Comments: maternal positioning for delivery, difficulty tracing ctx Datetime: 11/16/2019 14:26 STAGE 2 Pushing: Coached on Pushing Pushing Position: Pushing with Contractions; Pushing Lithotomy Pushing Progress: Descent with Pushing Datetime: 11/16/2019 14:21 VAGINAL EXAM Dilatation (cm): 10.0 Effacement (%): 100 Datetime: 11/16/2019 14:18 Communication Comments: Dr.Jay and RT notified patient to start pushing at this time Datetime: 11/16/2019 14:04 Station: 1 Position 'A': Left Occipital Anterior Vaginal Exam Comments: RUT Datetime: 11/16/2019 14:03 Actions for Decelerations: Oxygen Applied Oxygen Amount (LPM): 10 Datetime: 11/16/2019 13:59 Antiemetics/Antacids: Zofran (mg) @ 4 Datetime: 11/16/2019 13:57 COMMUNICATION Communication: Call/Page Placed to Provider Provider Notified (Name): Dr. Giem Notification Reason: Status; Uterine Activity Datetime: 11/16/2019 13:47 PATIENT CARE IV/Blood Work: IV Bolus Started Datetime: 11/16/2019 13:45 Exam by: H Gustavo RN Datetime: 11/16/2019 13:30 Comments: dips in FHR to 100 lasting <10 seconds and returning to baseline and moderate variability Anesthesia Level Check: T9 Datetime: 11/16/2019 13:26 Pain Type: Contraction Pain Location: Abdomen; Back Pain Assessment Comments: pt feeling ctx on left side abd and back. Repositioned, WCTM. Datetime: 11/16/2019 13:00 Patient Position/Activity: High Fowlers Datetime: 11/16/2019 12:25 Membrane Status: Ruptured Membranes Rupture Method: Artificial Amniotic Fluid Amount: None Membrane Comments: by dr giem Datetime: 11/16/2019 12:00 FHR Baseline Changes: Return to Previous Baseline Datetime: 11/16/2019 08:06 Procedures: Sterile Speculum Exam Datetime: 11/16/2019 06:59 Epidural Procedure: Completed Datetime: 11/16/2019 06:45 PAIN Pain Scale: 7 Pain Presence: Intermittent Datetime: 11/16/2019 06:39 PROCEDURE TIME OUT Procedure Verify: Correct Patient Identity; Correct Side and Site are Marked; Accurate Procedure Co nsent Form; Agreement on Procedure to be Done; Correct Patient Position; Addressed Need to Administer Antibiotics or Fluids for Irrigation; Safety Precautions Based on Patient History or Medication Use Datetime: 11/16/2019 06:34 Epidural Positioning: Sitting Datetime: 11/16/2019 06:05 ANESTHESIA Anesthesia Plans: Epidural Anesthesia Comments: Anesthesia called and coming in Datetime: 11/16/2019 05:02 Vaginal Bleeding: None Cervix, Consistency: Soft Cervix, Position: Posterior Datetime: 11/16/2019 04:24 Pain Relief Measures: Pain Medication Given Datetime: 11/16/2019 03:14 MEDICATIONS Analgesics/Sedatives: Fentanyl (mcg) @ (Annotations: 50mcg) Datetime: 11/16/2019 00:32 Monitor Interventions for FHR: Ultrasound Adjusted Datetime: 11/16/2019 00:06 Cervical Ripening Agents: [place] Balloon; Cytotec @ Datetime: 11/15/2019 23:07 TEACHING Instructional Method: Verbal Plan of Care: Plan of Care Discussed Unit Routine: [place] to Room; Call Mishra; Bed; Visiting Policy Labor/Induction: Cervical Ripening Pain Management: Pain Scale/Goals Datetime: 11/15/2019 19:22 MATERNAL ASSESSMENT Level of Consciousness: Alert Headache: Denies Breath Sounds, Left: Clear and Equal Breath Sounds, Right: Clear and Equal Nausea/Vomiting: Denies RUQ Epigastric Pain: Denies Datetime: 11/15/2019 18:30 Oxygen Method: Room Air
== END 2019-11-17 15:43 | disposition home or self-care (01) | DRG 807 ==
LOC: WFO 16:59 → FBP 17:05 → WFO 17:29 → FBP 17:30
PROVIDERS: ADMIT Obstetrics & Gynecology; ATTEND Obstetrics & Gynecology
PROC: 10D07Z6 Extraction of Products of Conception, Vacuum, Via Natural or Artificial Opening (ICD-10-PCS; principal; 2019-11-16)
PROC: 10907ZC Drainage of Amniotic Fluid, Therapeutic from Products of Conception, Via Natural or Artificial Opening (ICD-10-PCS; 2019-11-16)
PROC: 0W8NXZZ Division of Female Perineum, External Approach (ICD-10-PCS; 2019-11-16)
DX: O76 Abnormality in fetal heart rate and rhythm complicating labor and delivery (principal); Z37.0 Single live birth; Z3A.39 39 weeks gestation of pregnancy
CPT/HCPCS: 36415; 85025; A9270; J7120